=== PATIENT | male | born 1955 | race African-American/Black ===

== ENCOUNTER 2021-10-24 16:37 | Emergency (ER) | payer OTHER ==
[~2021-10-24] VITALS: Ht 190.5 cm; Wt 101.2 kg
[2021-10-24] MEDS ORDERED: IV NORMAL SALINE 1000 ML BAG IV ONE ×3 (17:30→18:30)
[2021-10-24] MEDS ORDERED: ONDANSETRON 4 MG/2 ML VIAL IV ONE (17:30)
[2021-10-24 17:42] LABS: HEMATOCRIT 47.1 % (36.7-47.1); MEAN CORPUSCULAR HEMOGLOBIN 27.3 uug (23.8-33.4); MEAN CORPUSCULAR VOLUME 82.9 fL (73.0-96.2); PLATELET COUNT (AUTO) 237 K/uL (152-348)
[2021-10-24] MEDS ORDERED: ONDANSETRON 4 MG/2 ML VIAL ONE ×2 (17:42→18:49)
[2021-10-24 17:56] LABS: CARBON DIOXIDE 29 mmol/L (21-32); CHLORIDE 108 mmol/L (98-107); GLUCOSE 166 mg/dL (74-106); POTASSIUM 5.7 mmol/L (3.5-5.1); UREA NITROGEN, BLOOD 20 mg/dL (7-18)
[2021-10-24 17:57] LABS: ALANINE AMINOTRANSFERASE 41 U/L (16-63); ALKALINE PHOSPHATASE 95 U/L (50-136); ASPARTATE AMINOTRANSFERASE 18 U/L (15-37); BILIRUBIN,DIRECT 0.1 mg/dL (0.0-0.2); BILIRUBIN,TOTAL 0.5 mg/dL (0.2-1.0); CREATININE 2.3 mg/dL (0.6-1.3); LIPASE 202 U/L (73-393); TOTAL PROTEIN, SERUM 8.8 g/dL (6.4-8.2)
--- NOTE | 2021-10-24 18:10 | NUR ---
Called [facility] for admission of patient. Waiting for Parish BLANCHARD to call back to speak with Dr Lemus.
[2021-10-24] MEDS ORDERED: SODIUM POLYSTYRENE SULFONATE 15 G/60 ML LIQUID UDC PO ONE (18:15)
[2021-10-24] MEDS ORDERED: INSULIN REGULAR, HUMAN 300 UNIT/3 ML VIAL IV ONE (18:15)
[2021-10-24] MEDS ORDERED: CALCIUM CHLORIDE 1 GM/10 ML DISP.SYRIN IVP ONE ×2 (18:15→18:28)
[2021-10-24] MEDS ORDERED: DEXTROSE 50% 50 ML DISP.SYRIN IV ONE (18:15)
[2021-10-24] MEDS ORDERED: AMLO10TA59 PO (18:19)
--- NOTE | 2021-10-24 18:22 | NUR ---
Dr Felix speaking with Parish Nieves MD.
[2021-10-24] MEDS ORDERED: DEXTROSE 50% 50 ML DISP.SYRIN ONE (18:28)
[2021-10-24] MEDS ORDERED: SODIUM POLYSTYRENE SULFONATE 15 G/60 ML LIQUID UDC ONE (18:29)
[2021-10-24] MEDS ORDERED: INSULIN REGULAR, HUMAN 300 UNIT/3 ML VIAL ONE (18:29)
--- NOTE | 2021-10-24 19:37 | NUR ---
patient's daughter and at bedside
[2021-10-24 19:44] LABS: *BILIRUBIN,URIN NEGATIVE (NEGATIVE); *BLOOD, URINE NEGATIVE (NEGATIVE); *CLARITY,URINE CLEAR (CLEAR); *COLOR,URINE YELLOW (YELLOW); *KETONES,URINE NEGATIVE (NEGATIVE); LEUKOCYTE ESTERASE ,URINE NEGATIVE (NEGATIVE); NITRITE, URINE NEGATIVE (NEGATIVE)
[2021-10-24 19:54] LABS: UGLUCOSE 1+ (NEGATIVE)
--- NOTE | 2021-10-24 20:48 | NUR ---
patient is a/ox4, NAD noted
--- NOTE | 2021-10-24 21:13 | NUR ---
Called [facility] for updates. They will call back for transfer info
--- NOTE | 2021-10-24 21:21 | NUR ---
Patient is able to tolerante food and fluid
--- NOTE | 2021-10-24 23:10 | NUR ---
spoke [facility] at [phone] pt will go to [facility] med surg unit [id number]. number for report is [phone] Lv Licona is accepting doctor. [facility] at [employer].
--- NOTE | 2021-10-24 23:24 | NUR ---
Report given to Megan IRIZARRY - [facility] [place]
--- NOTE | 2021-10-25 00:02 | NUR ---
report given to [facility]
--- NOTE | 2021-10-25 00:06 | NUR ---
Patient Tranfers to [facility] via [facility] unit [address] Physician: Dr Lv Licona
== END 2021-10-25 00:09 | disposition short-term general hospital (02) ==
LOC: ER 16:46
DX: N17.9 Acute kidney failure, unspecified (principal); E87.5 Hyperkalemia; R11.2 Nausea with vomiting, unspecified; I49.3 Ventricular premature depolarization; Z20.822 Contact with and (suspected) exposure to COVID-19
CPT/HCPCS: 99291; 96374; 96361; 96375; 87426; 80076; 80048; 81003; 82550; 83690; 85025; 84484; 36415; 93005; 71045; J3490 ×2; J2405 ×2; J1815; J7040 ×3